=== PATIENT | female | born 1985 | race African-American/Black ===

== ENCOUNTER 2018-08-08 11:06 | Emergency (ER) | payer MEDICAID ==
[~2018-08-08] VITALS: Ht 162.6 cm; Wt 90.7 kg
[~2018-08-08 11:06] MED LIST: AMOX1TAB61 PO; PROM25TA10 PO
[2018-08-08 11:28] VITALS: BP 111/59
[2018-08-08 11:35] LABS: BILIRUBIN,URINE NEGATIVE (NEG); CLARITY,URINE CLEAR; COLOR,URINE YELLOW; NITRITE,URINE NEGATIVE (NEG); PH,URINE 5.5; PROTEIN,URINE NEGATIVE (NEG-TRACE); UROBILINOGEN,URINE 0.2 mg/dL (0.2 mg/dL)
[2018-08-08 11:51] LABS: BACTERIA,URINE FEW /HPF (0-FEW); RBC,URINE OCC /HPF (0-2); SQUAMOUS EPITHELIAL CELL,UR MOD /LPF
[2018-08-08 12:15] LABS: BASO % 1 % (0-3); EOS # 0.2 x10^3/uL (0.0-0.7); EOS % 5 % (0-3); HEMATOCRIT 30.2 % (36.0-47.0); HEMOGLOBIN 10.1 g/dL (12.0-15.5); LYMPH # 1.1 x10^3/uL (1.0-4.8); LYMPH % 26 % (24-48); MEAN CORPUSCULAR HEMOGLOBIN 27 pg (25-35); MEAN CORPUSCULAR HGB CONC 34 g/dL (31-37); MEAN CORPUSCULAR VOLUME 82 fL (79-100); MONO # 0.3 x10^3/uL (0.0-1.1); MONO % 8 % (0-9); NEUT # 2.6 x10^3uL (1.8-7.7); NEUT % 62 % (31-73); PLATELET COUNT 207 x10^3/uL (140-400); RED CELL DISTRIBUTION WIDTH 13.6 % (11.5-14.5); WHITE BLOOD COUNT 4.2 x10^3/uL (4.0-11.0)
--- NOTE | 2018-08-08 12:19 | RAD ---
OB ULTRASOUND, > 14 WEEKS Clinical Indication: cramping Comparison: None. Technique: Multiple grayscale images, color Doppler, and M-mode images of the uterus are obtained. Findings: There is a single intrauterine gestation in breech presentation. The placenta is fundal in location without evidence of placenta previa. The amount of amniotic fluid appears appropriate. Cervical length is 4.5 cm. Biometrical data: BPD = 3 cm for 15 weeks 3 days. HC = 11 cm for 15 weeks 2 days. AC = 9.8 cm for 15 weeks 6 days. FL = 1.9 cm for 15 weeks 4 days. HC/AC ratio = 1.12. Overall, the estimated sonographic gestational age is 15 weeks and 4 days for an estimated date of delivery of January 26, 2019. The estimated date of delivery provided by the last menstrual period is February 01, 2019. Estimated weight is outside of range. The estimated heart rate is 140 beats per minute. A complete anatomic survey is not performed due to early gestational age. Impression: Single live intrauterine gestation with estimated sonographic gestational age of 15 weeks and 4 days. Electronically signed by: Guevara Lama MD (08/08/2018 12:16 PM) [id number]
[2018-08-08 12:27] LABS: CALCIUM 8.9 mg/dL (8.5-10.1); CREATININE 0.5 mg/dL (0.6-1.0); GFR 175.3; POTASSIUM 3.5 mmol/L (3.5-5.1)
[2018-08-08 12:33] LABS: ALBUMIN 3.5 g/dL (3.4-5.0); ALBUMIN/GLOBULIN RATIO 0.8 (1.0-1.7); TOTAL BILIRUBIN 0.4 mg/dL (0.2-1.0); TOTAL PROTEIN 7.8 g/dL (6.4-8.2)
--- NOTE | 2018-08-08 12:50 | PHYS DOC ---
Past Medical History Past Medical History: Other Additional Past Medical Histor: SARCOIDOSIS Past Surgical History: Alcohol Use: Rarely Drug Use: None Adult General Chief Complaint Chief Complaint: ABDOMINAL PAIN IN HPI HPI Patient is a 32 year old female who presents with pelvic cramping. The patient is approximately 15 weeks . She states the cramping began today. She denies any possibility of STD. She denies dysuria or bloody vaginal discharge. She has not been seen by an mail carrier technician yet for this . She does have a history of 3 live births. She denies any complications with those pregnancies. Review of Systems Review of Systems Constitutional: Denies fever or chills [] Eyes: Denies change in visual acuity, redness, or eye pain [] HENT: Denies nasal congestion or sore throat [] Respiratory: Denies cough or shortness of breath [] Cardiovascular: No additional information not addressed in HPI [] GI: Denies abdominal pain, nausea, vomiting, bloody stools or diarrhea [] : See history of present illness Musculoskeletal: Denies back pain or joint pain [] Integument: Denies rash or skin lesions [] Neurologic: Denies headache, focal weakness or sensory changes [] Endocrine: Denies polyuria or polydipsia [] All other systems were reviewed and found to be within normal limits, except as documented in this note. Allergies Allergies Allergies Coded Allergies Type Severity Reaction Last Updated Verified No Known Drug Allergies 11/30/15 No Physical Exam Physical Exam Constitutional: Well developed, well nourished, no acute distress, non-toxic appearance. [] Cardiovascular:Heart rate regular rhythm, no murmur [] Lungs & Thorax: Bilateral breath sounds clear to auscultation [] Abdomen: Bowel sounds normal, soft, no tenderness, no masses, no pulsatile masses. [] Skin: Warm, dry, no erythema, no rash. [] Back: No tenderness, no CVA tenderness. [] Extremities: No tenderness, no cyanosis, no clubbing, ROM intact, no edema. [] Neurologic: Alert and oriented X 3, normal motor function, normal sensory function, no focal deficits noted. [] Psychologic: Affect normal, judgement normal, mood normal. [] Current Patient Data Vital Signs Vital Signs Date Time Temp Pulse Resp B/P (MAP) Pulse Ox O2 Delivery O2 Flow Rate FiO2 08/08/18 11:28 98.6 54 18 111/59 (76) 95 Room Air 98.6 Lab Values Laboratory Tests Test 08/08/18 11:15 08/08/18 11:27 08/08/18 12:05 Urine Collection Type Unknown Urine Color Yellow Urine Clarity Clear Urine pH 5.5 Urine Specific [place] 1.025 Urine Protein Negative mg/dL (NEG-TRACE) Urine Glucose (UA) Negative mg/dL (NEG) Urine Ketones (Stick) Negative mg/dL (NEG) Urine Blood Negative (NEG) Urine Nitrite Negative (NEG) Urine Bilirubin Negative (NEG) Urine Urobilinogen Dipstick 0.2 mg/dL (0.2 mg/dL) Urine Leukocyte Esterase Negative (NEG) Urine RBC Occ /HPF (0-2) Urine WBC 1-4 /HPF (0-4) Urine Squamous Epithelial Cells Mod /LPF Urine Bacteria Few /HPF (0-FEW) Urine Mucus Marked /LPF POC Urine HCG, Qualitative Hcg positive (Negative) White Blood Count 4.2 x10^3/uL (4.0-11.0) Red Blood Count 3.70 x10^6/uL (3.50-5.40) Hemoglobin 10.1 g/dL (12.0-15.5) L Hematocrit 30.2 % (36.0-47.0) L Mean Corpuscular Volume 82 fL (79-100) Mean Corpuscular Hemoglobin 27 pg (25-35) Mean Corpuscular Hemoglobin Concent 34 g/dL (31-37) Red Cell Distribution Width 13.6 % (11.5-14.5) Platelet Count 207 x10^3/uL (140-400) Neutrophils (%) (Auto) 62 % (31-73) Lymphocytes (%) (Auto) 26 % (24-48) Monocytes (%) (Auto) 8 % (0-9) Eosinophils (%) (Auto) 5 % (0-3) H Basophils (%) (Auto) 1 % (0-3) Neutrophils # (Auto) 2.6 x10^3uL (1.8-7.7) Lymphocytes # (Auto) 1.1 x10^3/uL (1.0-4.8) Monocytes # (Auto) 0.3 x10^3/uL (0.0-1.1) Eosinophils # (Auto) 0.2 x10^3/uL (0.0-0.7) Basophils # (Auto) 0.0 x10^3/uL (0.0-0.2) Maternal Serum HCG Beta Subunit 94030 mIU/mL (0-5) H Sodium Level 134 mmol/L (136-145) L Potassium Level 3.5 mmol/L (3.5-5.1) Chloride Level 101 mmol/L (98-107) Carbon Dioxide Level 25 mmol/L (21-32) Anion Gap 8 (6-14) Blood Urea Nitrogen 10 mg/dL (7-20) Creatinine 0.5 mg/dL (0.6-1.0) L Estimated GFR (Cockcroft-Gault) 175.3 BUN/Creatinine Ratio 20 (6-20) Glucose Level 86 mg/dL (70-99) Calcium Level 8.9 mg/dL (8.5-10.1) Total Bilirubin 0.4 mg/dL (0.2-1.0) Aspartate Amino Transferase (AST) 29 U/L (15-37) Alanine Aminotransferase (ALT) 46 U/L (14-59) Alkaline Phosphatase 112 U/L (46-116) Total Protein 7.8 g/dL (6.4-8.2) Albumin 3.5 g/dL (3.4-5.0) Albumin/Globulin Ratio 0.8 (1.0-1.7) L Laboratory Tests 08/08/18 12:05 Laboratory Tests 08/08/18 12:05 EKG EKG [] Radiology/Procedures Radiology/Procedures [] PATIENT: CHARMAINE FARAH ACCOUNT: [id number] : 1985 LOCATION: ER AGE: 32 SEX: F EXAM STATUS: REG ER ORD. PHYSICIAN: SHERRY REDDY APRN REASON: pelvic cramping PROCEDURE: PREG MORE THAN OR EQ TO 14 WKS OB ULTRASOUND, > 14 WEEKS Clinical Indication: cramping Comparison: None. Technique: Multiple grayscale images, color Doppler, and M-mode images of the uterus are obtained. Findings: There is a single intrauterine gestation in breech presentation. The placenta is fundal in location without evidence of placenta previa. The amount of amniotic fluid appears appropriate. Cervical length is 4.5 cm. Biometrical data: BPD = 3 cm for 15 weeks 3 days. HC = 11 cm for 15 weeks 2 days. AC = 9.8 cm for 15 weeks 6 days. FL = 1.9 cm for 15 weeks 4 days. HC/AC ratio = 1.12. Overall, the estimated sonographic gestational age is 15 weeks and 4 days for an estimated date of delivery of January 26, 2019. The estimated date of delivery provided by the last menstrual period is February 01, 2019. Estimated weight is outside of range. The estimated heart rate is 140 beats per minute. A complete anatomic survey is not performed due to early gestational age. Impression: Single live intrauterine gestation with estimated sonographic gestational age of 15 weeks and 4 days. Electronically signed by: Guevara Lama MD (08/08/2018 12:16 PM) [id number] DICTATED and SIGNED BY: GUEVARA LAMA MD DATE: 08/08/18 1216 Course & Med Decision Making Course & Med Decision Making Pertinent Labs and Imaging studies reviewed. (See chart for details) [] Dragon Disclaimer Dragon Disclaimer This electronic medical record was generated, in whole or in part, using a voice recognition dictation system. Departure Departure Impression: Primary Impression: Pelvic cramping Disposition: 01 HOME, SELF-CARE Condition: STABLE Referrals: NO PCP (PCP) TALYA HUMPHREY MD Patient Instructions: Abdominal Pain During Additional Instructions: Follow-up with OB for further evaluation and management of your . SHERRY REDDY APRN Aug 08, 2018 12:50
== END 2018-08-08 13:00 | disposition home or self-care (01) ==
LOC: ER 11:06
DX: O26.892 Other specified pregnancy related conditions, second trimester (principal); R10.2 Pelvic and perineal pain; Z3A.15 15 weeks gestation of pregnancy
CPT/HCPCS: 36415; 76805; 80053; 81001; 81025; 84702; 85025; 99284-25

== ENCOUNTER 2021-07-19 17:36 | Emergency (ER) | payer MEDICAID ==
[~2021-07-19] VITALS: Ht 162.6 cm; Wt 86.0 kg
--- NOTE | 2021-07-19 18:43 | PHYS DOC ---
Past Medical History Past Medical History: Other Additional Past Medical Histor: SARCOIDOSIS Past Surgical History: Smoking Status: Never Smoker Alcohol Use: Rarely Drug Use: None General Adult EDM: Chief Complaint: COUGH HPI: HPI: Patient is a 35 year old female who presents with 3 weeks of intermittent sore throat, nonproductive cough, congestion. She denies fevers or chills. She denies chest pain, dyspnea. She denies hemoptysis or sputum production. She denies headache. She denies abdominal pain, nausea, vomiting, diarrhea. Denies urinary symptoms. She works at [employer], though she denies any specific known sick contacts. She has been fully vaccinated against COVID-19. She has had a flu shot as well. Her symptoms have been intermittent but are persisting, so she decided to come to the ER to be seen. She has not taken anything for pain today. She has previously taken DayQuil and Aleve, but this was earlier in the week. Review of Systems: Review of Systems: Constitutional: Denies fever or chills. [] Eyes: Denies change in visual acuity. [] HENT: Mild nasal congestion, sore throat, no odynophagia, no stridor. She does report some mild hoarseness. Respiratory: Cold, dry cough. Denies dyspnea or wheezing. Denies hemoptysis Cardiovascular: Denies chest pain or edema. [] GI: Denies abdominal pain, nausea, vomiting, or diarrhea : Denies any urinary symptoms Musculoskeletal: Denies back pain or joint pain. [] Integument: Denies rash. [] Neurologic: Denies headache, focal weakness or sensory changes. [] Psychiatric: Denies depression or anxiety. [] Heart Score: C/O Chest Pain: No Risk Factors: Risk Factors: DM, Current or recent (<one month) smoker, HTN, HLP, family history of CAD, obesity. Risk Scores: Score 0 - 3: 2.5% MACE over next 6 weeks - Discharge Home Score 4 - 6: 20.3% MACE over next 6 weeks - Admit for Clinical Observation Score 7 - 10: 72.7% MACE over next 6 weeks - Early Invasive Strategies Allergies: Allergies: Allergies Coded Allergies Type Severity Reaction Last Updated Verified No Known Drug Allergies 11/30/15 No Physical Exam: PE: Constitutional: Well developed, well nourished, no acute distress, non-toxic appearance. [] HENT: Normocephalic, atraumatic, oropharynx is patent and clear, no exudate or erythema. Uvula midline. No oral, lingual or facial swelling noted. Mucous membranes are moist. External ears are normal bilaterally. TMs are clear bilaterally. Nares are patent without rhinorrhea epistaxis. Eyes: PERRL, conjunctiva normal, no discharge. [] Neck: Normal range of motion, no tenderness, supple, no stridor. Trachea is midline. No JVD. No thyromegaly. No abnormal adenopathy. Full range of motion. No meningismus. Cardiovascular:Heart rate regular rhythm, +2 radial pulses, warm and well- perfused, no peripheral edema. Lungs & Thorax: Bilateral breath sounds clear to auscultation, no rales, rhonchi, wheezes, no stridor. No tachypnea. No evidence of distress Skin: Warm, dry, no erythema, no rash. [] Back: No tenderness, no CVA tenderness. [] Extremities: No tenderness, no cyanosis, no clubbing, ROM intact, no edema. No calf tenderness. Neurologic: Alert and oriented X 3, normal motor function, normal sensory function, no focal deficits noted. [] Psychologic: Affect normal, judgement normal, mood normal. [] Current Patient Data: Vital Signs: Vital Signs Date Time Temp Pulse Resp B/P (MAP) Pulse Ox O2 Delivery O2 Flow Rate FiO2 07/19/21 17:48 97.6 74 16 135/63 (87) 100 Room Air 97.6 EKG: EKG: [] Radiology/Procedures: Radiology/Procedures: [] Course & Med Decision Making: Course & Med Decision Making Pertinent Labs and Imaging studies reviewed. (See chart for details) P.o. ibuprofen is given for pain. Emergency department evaluation is unremarkable for any acute life-threatening process. She has an unremarkable physical exam. Vital signs are stable. She manifest no evidence of respiratory distress, no evidence of airway obstruction. I discussed the findings, differential diagnosis and plan of care with her. No indication for further invasive exams, imaging at this time. Home care instructions are given. She requested a work note to be excused from work today. This is provided to her. I told her to follow-up with her PCP. Return precautions are given. Dragon Disclaimer: Emma Disclaimer: This electronic medical record was generated, in whole or in part, using a voice recognition dictation system. Departure Departure Impression: Primary Impression: Cough Additional Impression: Sore throat Disposition: HOME / SELF CARE / HOMELESS Condition: STABLE Referrals: NO PCP (PCP) Patient Instructions: Laryngitis, Sore Throat Additional Instructions: Return to the ER for chest pain, shortness of breath, temperature 100.4 or higher, wheezing, inability to swallow, difficulty controlling secretions, uncontrolled vomiting, dehydration or other concerns. You may take [id number] Tylenol or ibuprofen for pain. Eat a bland diet. Drink plenty of fluids. Follow-up with your primary care doctor RONNEI SCHROEDER DO Jul 19, 2021 18:43
[2021-07-19] MEDS ORDERED: IBUPROFEN 400 MG TABLET. PO ONE (19:00)
[2021-07-19 19:40] LABS: INFLUENZA A PATIENT NEGATIVE (NEGATIVE); INFLUENZA B PATIENT NEGATIVE (NEGATIVE)
[2021-07-19 19:46] VITALS: BP 130/98
--- NOTE | 2021-07-22 11:30 | NUR ---
IP: Informed pt of negative covid test. Pt verbalized understanding.
== END 2021-07-19 20:25 | disposition home or self-care (01) ==
LOC: ER 17:36
DX: J02.9 Acute pharyngitis, unspecified (principal); R05.9 Cough, unspecified; R09.81 Nasal congestion; Z20.822 Contact with and (suspected) exposure to COVID-19
CPT/HCPCS: 87070; 87428; 87880; 99283; C9803; U0003

== ENCOUNTER 2021-07-23 11:14 | Emergency (ER) | payer MEDICAID, OTHER ==
[~2021-07-23] VITALS: Ht 162.6 cm; Wt 95.2 kg
[2021-07-23] MEDS ORDERED: ONDANSETRON ODT 4 MG TAB.RAPDIS. PO ONE (12:15)
[2021-07-23 12:24] LABS: CLARITY,URINE CLEAR; COLOR,URINE YELLOW; U PREG PATIENT NEGATIVE (NEG)
[2021-07-23 12:25] LABS: BILIRUBIN,URINE NEGATIVE (NEG); NITRITE,URINE NEGATIVE (NEG); PH,URINE 5.5 (<5.0-8.0); PROTEIN,URINE NEGATIVE (NEG-TRACE)
[2021-07-23 12:27] LABS: BACTERIA,URINE FEW /HPF (0-FEW); RBC,URINE 0 /HPF (0-2); WBC,URINE 0 /HPF (0-4)
[2021-07-23] MEDS ORDERED: ONDA4TAB12 PO (13:15)
--- NOTE | 2021-07-23 13:16 | PHYS DOC ---
Past Medical History Past Medical History: Other Additional Past Medical Histor: SARCOIDOSIS Past Surgical History: Smoking Status: Never Smoker Alcohol Use: Rarely Drug Use: None General Adult EDM: Chief Complaint: ABDOMINAL PAIN HPI: HPI: Patient is a 35 female who presents to the emergency department complaining of nausea, vomiting, diarrhea that started 2 days ago. Patient reports her son, daughter, and had similar symptoms earlier this week, was diagnosed with "the stomach flu "and have symptoms resolving, patient states she thinks she has got the same thing dated as her symptoms are the same. Patient denies fever or chills at home, denies loss of taste or loss of smell, denies chest pains, chest congestion or nasal congestion, denies sore throat or ear pain. Patient denies dizziness, syncopal or near syncopal episodes patient reports she did vomit 1 time at 5:00 this morning noticing watery vomitus with food particles. Patient reports 1 diarrhea spell at 5 AM this morning when she vomited, patient reports loose brown watery stool. Patient denies abdominal pain, constipation, denies seeing blood in her stool, denies increased urinary frequency, urinary pressure, urinary burning, hematuria or other dysuria. Patient reports her last menstrual cycle was 07/05/2021 with normal duration of flow. Patient denies other physical complaints or physical concerns. Review of Systems: Review of Systems: 14 body systems of review of systems have been reviewed. See HPI for pertinent positives and negative responses, otherwise all other systems are negative, nonpertinent or noncontributory. Constitutional: Negative except as outlined in HPI above. Skin: Negative except as outlined in HPI above. Eyes: Negative except as outlined in HPI above. HENT: Negative except as outlined in HPI above. Respiratory: Negative except as outlined in HPI above. Cardiovascular: Negative except as outlined in HPI above. GI: Negative except as outlined in HPI above. : Negative except as outlined in HPI above. Musculoskeletal: Negative except as outlined in HPI above. Integument: Negative except as outlined in HPI above. Neurologic: Negative except as outlined in HPI above. Endocrine: Negative except as outlined in HPI above. Lymphatic: Negative except as outlined in HPI above. Psychiatric: Negative except as outlined in HPI above. Heart Score: C/O Chest Pain: No Risk Factors: Risk Factors: DM, Current or recent (<one month) smoker, HTN, HLP, family history of CAD, obesity. Risk Scores: Score 0 - 3: 2.5% MACE over next 6 weeks - Discharge Home Score 4 - 6: 20.3% MACE over next 6 weeks - Admit for Clinical Observation Score 7 - 10: 72.7% MACE over next 6 weeks - Early Invasive Strategies Current Medications: Current Medications Medications (Trade) Dose Ordered Sig/Amy Start Time Stop Time Status Last Admin Dose Admin Ondansetron HCl (Zofran Odt) 4 mg 1X ONCE 07/23/21 12:15 07/23/21 12:16 DC 07/23/21 12:53 4 MG Allergies: Allergies: Allergies Coded Allergies Type Severity Reaction Last Updated Verified No Known Drug Allergies 07/23/21 No Physical Exam: PE: Constitutional: Well developed, well nourished, no acute distress, non-toxic a ppearance. 35-year-old female in no apparent distress. HENT: Normocephalic, atraumatic. Oropharynx moist, pink, no deep tissue infectious process appreciated, uvula is midline, there is no laryngeal edema, no facial swelling noted, no drooling, no trismus, bilateral TMs are intact and within normal limits, bilateral nasal turbinates patent . No lymphadenopathy of the head or neck appreciated. Eyes: Conjunctiva normal, no discharge. Neck: Normal range of motion, no stridor. No meningismus signs, no nuchal rigidity. Cardiovascular: No cyanosis appreciated, distal cap refill less than 2 seconds. Heart sounds S1-S2 to auscultation, regular rate and rhythm. Lungs & Thorax: Patient is in no respiratory distress, lung sounds clear per auscultation, normal work of breathing. Abdomen: Nontender, no abnormalities noted. Abdomen is soft, nontender, no surgical scars, no skin discoloration appreciated, abdomen is round, no pulsatile masses, patient is obese, BMI of 36.0 Skin: Warm, dry, no erythema, no rash. Back: No tenderness, no deformities. Extremities: No tenderness, no cyanosis, no clubbing, ROM intact, no edema. Neurologic: Alert and oriented X 3, normal motor function, normal sensory function, no focal deficits noted. Psychologic: Affect normal, judgement normal, mood normal. Current Patient Data: Labs: Laboratory Tests Test 07/23/21 11:30 07/23/21 11:31 Urine Collection Type Unknown Urine Color Yellow Urine Clarity Clear Urine pH 5.5 (<5.0-8.0) Urine Specific [place] 1.030 (1.000-1.030) Urine Protein Negative mg/dL (NEG-TRACE) Urine Glucose (UA) Negative mg/dL (NEG) Urine Ketones (Stick) Negative mg/dL (NEG) Urine Blood Negative (NEG) Urine Nitrite Negative (NEG) Urine Bilirubin Negative (NEG) Urine Urobilinogen Dipstick 1.0 mg/dL (0.2 mg/dL) Urine Leukocyte Esterase Negative (NEG) Urine RBC 0 /HPF (0-2) Urine WBC 0 /HPF (0-4) Urine Squamous Epithelial Cells Few /LPF Urine Bacteria Few /HPF (0-FEW) Urine Mucus Mod /LPF Urine Test Negative (NEG) POC Urine HCG, Qualitative Hcg negative (Negative) Vital Signs: Vital Signs Date Time Temp Pulse Resp B/P (MAP) Pulse Ox O2 Delivery O2 Flow Rate FiO2 07/23/21 12:54 78 20 122/60 (80) 100 Room Air 07/23/21 11:18 98.9 98.9 EKG: EKG: [] Radiology/Procedures: Radiology/Procedures: [] Course & Med Decision Making: Course & Med Decision Making Pertinent Labs and Imaging studies reviewed. (See chart for details) 35-year-old female, vital signs reviewed, presents emergency department concerning nausea vomiting diarrhea for the past 2 days. Physical examination is unremarkable, patient reports she does not want a work-up in the ED, patient states she has the same symptoms as her daughter son and who were diagnosed with "stomach bug" patient states she just wants a prescription for Zofran and a work excuse. Did order urinalysis assay and urine test. The patient's urine is not infected, she is not for urine test, discussed with patient offering further work-up in the emergency department, patient adamantly refuses this, patient does report having similar symptoms to ill family members at home, will give 1 tablet oral dissolving Zofran in the ED today, the patient's vital signs are within normal limits, she is not tachycardic hypertensive or febrile. She is in no respiratory distress. Discussed with patient providing prescription for Zofran at home, will provide work excuse, discussed with patient strict follow-up with primary care, patient reports she seeks primary care at [facility], patient is not toxic and is in no respiratory distress. We will discharged home. Discussed with the patient all findings and diagnostic testing as well as the need to follow-up with their primary care provider for further evaluation and treatment or return to the ED if any new or worsening symptoms. Strict return precautions were also discussed at length, the patient voiced understanding and agreement with the discharge planning. The patient was nontoxic in appearance, in no apparent distress, and hemodynamically stable at the time of disposition. Dragon Disclaimer: Original Disclaimer: This electronic medical record was generated, in whole or in part, using a voice recognition dictation system. Departure Departure Impression: Primary Impression: Nausea vomiting and diarrhea Disposition: HOME / SELF CARE / HOMELESS Condition: GOOD Referrals: NO PCP (PCP) Patient Instructions: Diarrhea, Nausea and Vomiting Additional Instructions: You were seen today in the emergency department for nausea vomiting and diarrhea. A urinalysis and urine test was run today, there are no signs of infection in your urine, you are not per urine test. I did offer further work-up in the emergency department however you have refused this stating you are having the same symptoms as your son daughter and who are diagnosed with the "stomach". With your vital signs within normal limits, you and I made a joint decision to discharged home with a prescription of Zofran, strict follow-up with your primary care physician this week for ongoing symptoms, I will provide a work excuse. Please continue to drink plenty of fluids. You may take Tylenol or Motrin for any returning discomfort symptoms. Thank you for visiting our Emergency Department. It was a pleasure taking care of you today in the emergency department and we appreciate you trusting us with your care. If any additional problems come up don't hesit ate to return to visit us. Please follow up with your primary care provider so they can plan additional care if needed and know about the problem that you had. If symptoms worsen come back to the Emergency Department. Any concerning symptoms that start such as chest pain, shortness of air, weakness or numbness on one side of the body, running high fevers or any other concerning symptoms return to the ER. Scripts Ondansetron (ONDANSETRON ODT) 4 Mg Tab.rapdis 1 TAB PO PRN Q6-8HRS for nausea, #16 TAB 0 Refills Prov: RUBI OLIVAREZ APRN 07/23/21 RUBI OLIVAREZ APRN Jul 23, 2021 13:16
[2021-07-23 13:20] VITALS: BP 126/66
== END 2021-07-23 13:20 | disposition home or self-care (01) ==
LOC: ER 11:14
DX: R11.2 Nausea with vomiting, unspecified (principal); R19.7 Diarrhea, unspecified
CPT/HCPCS: 81001; 81025; 99283

== ENCOUNTER 2021-08-29 19:41 | Emergency (ER) | payer OTHER ==
[~2021-08-29] VITALS: Ht 162.6 cm; Wt 83.0 kg
[~2021-08-29 19:41] MED LIST changes: +ONDA4TAB12 PO
[2021-08-29 19:45] VITALS: BP 151/87
--- NOTE | 2021-08-29 20:11 | PHYS DOC ---
Past Medical History Past Medical History: Other Additional Past Medical Histor: SARCOIDOSIS Past Surgical History: No Surgical History Smoking Status: Never Smoker Alcohol Use: Rarely Drug Use: None General Adult EDM: Chief Complaint: FLU SYMPTOM HPI: HPI: Patient is a 36 year old female who presents with 3 days of nasal congestion, nasal drainage, cough, frontal sinus headache. She states today she took Tylen ol Cold and flu. She rates her headache a 6 out of 10. She denies fever, shortness of breath, chest pain, vision change, ear pain, abdominal pain, nausea, vomiting, diarrhea, numbness or tingling, focal weakness. History sarcoidosis. Review of Systems: Review of Systems: Constitutional: Denies fever or chills. [] Eyes: Denies change in visual acuity. [] HENT: +nasal congestion or +sore throat. [] Respiratory: +cough or denies shortness of breath. [] Cardiovascular: Denies chest pain or edema. [] GI: Denies abdominal pain, nausea, vomiting, bloody stools or diarrhea. [] : Denies dysuria. [] Musculoskeletal: Denies back pain or joint pain. + Generalized fatigue [] Integument: Denies rash. [] Neurologic: +headache, denies focal weakness or sensory changes. [] Endocrine: Denies polyuria or polydipsia. [] Lymphatic: Denies swollen glands. [] Psychiatric: Denies depression or anxiety. [] Heart Score: C/O Chest Pain: No Allergies: Allergies: Allergies Coded Allergies Type Severity Reaction Last Updated Verified No Known Drug Allergies 07/23/21 No Physical Exam: PE: Constitutional: Well developed, well nourished, no acute distress, non-toxic appearance. [] HENT: Normocephalic, atraumatic, bilateral external ears normal, oropharynx moist, no oral exudates, nose normal. Nasal congestion present. Postnasal drip present. Throat is pink with exudates or swelling and uvula midline. No trismus. Bilateral tympanic's white, intact with effusions. [] Eyes: PERRLA, EOMI, conjunctiva normal, no discharge. [] Neck: Normal range of motion, no tenderness, supple, no stridor. [] Cardiovascular:Heart rate regular rhythm, no murmur [] Lungs & Thorax: Bilateral breath sounds clear to auscultation [] Abdomen: Bowel sounds normal, soft, no tenderness, no masses, no pulsatile masses. [] Skin: Warm, dry, no erythema, no rash. [] Back: No tenderness, no CVA tenderness. [] Extremities: No tenderness, no cyanosis, no clubbing, ROM intact, no edema. [] Neurologic: Alert and oriented X 3, normal motor function, normal sensory function, no focal deficits noted. [] Psychologic: Affect normal, judgement normal, mood normal. [] Current Patient Data: Vital Signs: Vital Signs Date Time Temp Pulse Resp B/P (MAP) Pulse Ox O2 Delivery O2 Flow Rate FiO2 08/29/21 19:45 98.2 83 18 151/87 (108) 99 Room Air 98.2 EKG: EKG: [] Radiology/Procedures: Radiology/Procedures: [] Course & Med Decision Making: Course & Med Decision Making Pertinent Labs and Imaging studies reviewed. (See chart for details) See HPI. Alert and oriented x4. Ambulatory steady gait. Skin pink warm and dry. Speaks in full clear sentences. Throat is pink without exudates. Trismus. Bilateral tympanic's white and intact but there is fluid behind the drums. Nasal congestion and postnasal drip present. Afebrile. Lungs are clear all station all lobes. No respiratory distress. Sinus pressure over frontal and maxillary with palpation. Patient is given Decadron. Dragon Disclaimer: Dragon Disclaimer: This electronic medical record was generated, in whole or in part, using a voice recognition dictation system. Departure Departure Impression: Primary Impression: Nasal congestion Additional Impressions: Sinus headache Cough Disposition: HOME / SELF CARE / HOMELESS Condition: STABLE Referrals: NO PCP (PCP) Patient Instructions: Allergies, Generic Additional Instructions: Take medications as prescribed. Drink plenty of fluids. Elevate the head of bed to help with postnasal drip and cough. Scripts Fluticasone Propionate (Flonase Allergy Relief) 9.9 Ml [place].susp 2 SPRAYS NS DAILY, #1 ML Prov: LATRICIA RAMIREZ APRN 08/29/21 Loratadine/Pseudoephedrine (CLARITIN-D 24 HOUR TABLET) 1 Each Tab.er.24h 1 TAB PO DAILY for 10 Days, #10 TAB 0 Refills Prov: LATRICIA RAMIREZ APRN 08/29/21 LATRICIA RAMIREZ [employer] Aug 29, 2021 20:11
[2021-08-29] MEDS ORDERED: DEXAMETHASONE 4 MG TABLET PO ONE (20:15)
[2021-08-29] MEDS ORDERED: LORA-627 PO (20:23)
[2021-08-29] MEDS ORDERED: FLUT9.9S NS (20:23)
== END 2021-08-29 20:35 | disposition home or self-care (01) ==
LOC: ER 19:41
DX: R09.81 Nasal congestion (principal); R51.9 Headache, unspecified; R05.9 Cough, unspecified
CPT/HCPCS: 99283